=== PATIENT | female | born 1940 | race Caucasian/White ===

== ENCOUNTER 2019-09-24 10:37 | Emergency (ER) | payer MEDICARE, SELFPAY ==
[2019-09-24] VITALS (14 sets, daily range): BP systolic 134–157; BP diastolic 59–78; PULSE 70–96; RESP 13–33; TEMP 36.4–36.5; O2SAT 95–100
--- NOTE | 2019-09-24 10:45 | DI.RAD_ITS ---
EXAM: XR CHEST 2V PA LATERAL INDICATION: pain/sob/cough. COMPARISON: ABD PELVIS WITH CONTRAST from 03/14/2011 CHEST 2 VIEWS PA,LAT from 09/02/2013 TECHNIQUE: 2D digital imaging was performed. FINDINGS: The heart appears mildly enlarged. A hiatal hernia is again noted. There is scoliosis of the upper thoracic spine. There are mild fibrotic changes. No infiltrate, effusion or pulmonary edema is seen . IMPRESSION: Hiatal hernia. No acute abnormality. DATA REPOSITORY: RADIATION DOSE DELIVERED:
[2019-09-24 11:20] LABS: Abs Immature Grans 0.02 k/cumm (0.0-0.09); Absolute Basophil Count 0.02 k/cumm (0.0-0.2); Absolute Lymphocyte Count 1.62 k/cumm (1.2-3.4); Absolute Monocyte Count 0.87 k/cumm (0.11-0.7); Absolute Neutrophil Count 4.78 k/cumm (1.2-6.7); Basophils % 0.3; Eosinophils % 7.6; HCT 39.1 % (36.0-46.0); HGB 12.3 g/dL (12.0-15.5); Immature Grans % 0.3 %; Lymphocytes % 20.5; Mean Corp. HGB Concentration 31.5 g/dL (32.0-36.0); Mean Corpuscular Hemoglobin 26.3 pg (27.0-33.0); Mean Corpuscular Volume 83.7 fL (80-95); Mean Platelet Volume 10.3 fL (8.0-11.0); Neutrophils % 60.3; Platelet Count 249 x1000/uL (130-400); RBC 4.67 m/cumm (4.00-5.20); White Blood Cell Count 7.91 k/cumm (4.4-10.8)
[2019-09-24] MEDS: Albuterol 2.5 MG/3 ML INH SOLN VIAL UPD (11:24)
--- NOTE | 2019-09-24 11:28 | ED.GENADUL_ITS ---
Discharge Plan Disposition Patient Disposition: HOME Condition: Improving Discharge Details Chief Complaint: SOB Clinical Impression: Dyspnea, Chest pain Primary Care Provider: Shira Dykes ED Provider: Devendra Gonsalves Home Meds and New Rx's Prescriptions: New prednisone 20 mg tablet 60 mg PO DAILY 5 Days Qty: 15 RF: 0 No Action mometasone [Nasonex] 17 GM spray,non-aerosol 1 spry Inhalation PRN PRNRF: 0 omeprazole [Prilosec] 20 MG capsule,delayed release(DR/EC) 20 mg PO DAILY RF: 0 Flovent HFA 120 PUFF HFA aerosol inhaler 2 puff Inhalation BID RF: 0 Combivent Respimat 1 PUFF mist 1 puff Inhalation QID RF: 0 Discharge Instructions Instructions: Chest Pain (ED), Dyspnea (ED) Additional Instructions: Prednisone as directed. Continue home medications as directed. Please watch for new or worsening symptoms and return to the ER for any concerns. Otherwise I would like you to contact your primary care provider later today or tomorrow for prompt outpatient reevaluation. Medical Decision Making 79-year-old female with a history of COPD reports left-sided chest wall pressure-pain associated with dyspnea and wheezing over the past 24 hours. Took her inhalers without resolution of her symptoms but after a neb treatment via EMS felt dramatically improved. Upon presentation she appears well, nontoxic and is speaking in full sentences. Her HPI and examination are more consistent with a COPD exacerbatio, pneumoni, pleurisy than they are cardiac in nature. Low suspicion for PE. Will initiate cardiac work-up including d-dimer, give a second neb treatment, IV Solu-Medrol and reassess. No ripping or tearing sensation. Pulses equal throughout. Extremely low suspicion for dissection Upon reevaluation only mild scattered expiratory wheezes remain, mostly clear with cough. Patient is satting 99% on room air. She denies any pain or tightness whatsoever. Initial work-up unremarkable, dimer negative. Patient agreeable to staying in the ER for a 3-hour repeat troponin and EKG. Repeat EKG performed at 1441 reveals sinus rhythm, ventricular rate of 82. No acute ST elevation or depression segments. No changes when compared to initial EKG. Troponin undetectable. Discussed these findings with patient. She is requesting discharge and is comfortable taking oral steroids, 5-day burst dose. She will follow-up with her primary care and was encouraged to return to the ER for any evolving symptoms. As above, extremely low suspicion for ACS, PE, etc. Most likely diagnosis is that of a COPD exacerbation. Patient responded well to treatment here in the ER Medical Records Medical records reviewed: Yes I reviewed the patient's medical records. Imaging Data Radiologic Study: Attestation: I personally reviewed and interpreted this imaging study as follows: Imaging: X-Ray Lab Data Lab results narrative: Chest x-ray negative as read by me ECG Data Attestation: I personally reviewed and interpreted this ECG (s) as follows: Interpretation: EKG performed at 1047. Reveals sinus rhythm, ventricular rate of 70. No acute ST elevation or depression segments HPI General Mode of arrival: EMS . Date/Time Provider Initiated Documentation: 09/24/19 10:43 . Limitations to Documentation: no limitations . Information obtained by: patient . HPI Narrative: 79-year-old female with a history of COPD presents to the ER via EMS for symptoms that began yesterday evening. She reports chest tightness, a sharp pain on her left side of the chest, wheezing, dry cough. She feels like she needs to get something out of her chest but nothing comes up when she coughs. Patient reports using her inhalers at home with little relief but believes that the neb treatment given by EMS helped moderately. She denies recent illness or fever. Denies any anterior chest pain. She denies any pain or swelling in her legs. Patient denies smoking, was never a smoker. Patient denies any radiation of her left- sided lateral chest discomfort into her arm, neck. She does report mild left- sided back pain, thoracic, seems to be positional and worse with movement. Patient denies any history of cardiac disease. Related Data Home Medications Medication Instructions Recorded Confirmed fluticasone propionate [Flovent 2 puff INHALATION BID 09/02/13 09/24/19 220MCG] ipratropium-albuterol [Combivent 1 puff INHALATION QID 09/02/13 09/24/19 Respimat Inhaler] mometasone [Nasonex] 1 spry INHALATION PRN PRN 09/02/13 09/24/19 omeprazole [Prilosec] 20 mg PO DAILY 09/02/13 09/24/19 prednisone 60 mg PO DAILY 5 Days #15 tab 09/24/19 Previous Rx's Medication Instructions Recorded prednisone 60 mg PO DAILY 5 Days #15 tab 09/24/19 Allergies Allergy/AdvReac Type Severity Reaction Status Date / Time Sulfa (Sulfonamide AdvReac Intermediate leg cramps Unverified 09/24/19 10:47 Antibiotics) General Stated Complaint: SOB ASTER: 2 Review of Systems Constitutional Constitutional: Denies chills, Denies fatigue, Denies fever(s) and Denies headache(s) Eyes Eyes: Denies eye discharge ENT Ears, Nose, Mouth, and Throat: Denies otalgia, Denies headache(s) and Denies sore throat Cardiovascular Cardiovascular: Reports chest pain (Left lateral), Denies syncope and Reports dyspnea Respiratory Respiratory: Reports cough and Reports dyspnea Gastrointestinal Gastrointestinal: Denies abdominal pain, Denies nausea and Denies vomiting Musculoskeletal Musculoskeletal: Reports back pain Integumentary/Breasts Skin/Breast: Denies rash Neurologic Neurologic: Denies syncope and Denies headache(s) Endocrine Endocrine: Denies fatigue [facility] Social History Smoking/Tobacco Use Status: Never Alcohol Intake: never Drug use: Never Substance use type: does not use Exam Const General: cooperative, healthy appearing, comfortable and no acute distress Orientation: alert and awake [facility] Head: normal to inspection, normocephalic and atraumatic Mouth: moist mucous membranes Throat: posterior oropharynx normal Eyes Conjunctivae: conjunctivae normal Sclera: sclerae normal Neck Neck: normal visual inspection, full ROM, no lymphadenopathy, trachea midline and supple Chest Chest: tenderness (Mild tenderness and ecchymosis L lateral chest wall just below the breast) Resp Effort & Inspection: normal respiratory effort and able to speak in complete sentences Auscultation: wheezes expiratory wheezes (Bilateral upper) Cardio Rate: regular rate Rhythm: regular rhythm GI Palpation: not soft and nontender Back/Spine/Pelvis Back: No back tenderness Skin General skin exam: no rashes or lesions noted Neuro General: alert, awake, oriented x3, moves all extremities and no focal motor deficits Cranial Nerves: CN's II-XI intact bilaterally Motor: muscle tone normal throughout and strength 5/5 throughout Sensory Exam: no sensory deficits noted Extrem General: normal to inspection Psych Appearance: grossly normal Mental Status: mental status grossly normal Course Vital Signs Vital signs: Vital Signs Temperature 36.4 C 09/24/19 10:40 Pulse 82 09/24/19 10:40 Respiratory Rate 19 09/24/19 10:40 Blood Pressure 152/75 H 09/24/19 10:40 Pulse Oximetry 98 09/24/19 10:40 Temperature 36.4 C 09/24/19 10:40 Temperature Source Skin 09/24/19 10:40 Pulse 82 09/24/19 10:40 Respiratory Rate 18 09/24/19 11:23 Respiratory Effort 09/24/19 11:23 Respiratory Depth Normal 09/24/19 11:23 Respiratory Pattern Normal 09/24/19 11:23 Blood Pressure 152/75 H 09/24/19 10:40 Blood Pressure Position Supine 09/24/19 10:40 Pulse Oximetry 98 09/24/19 10:40 Oxygen Delivery Method Room Air 09/24/19 10:40 Oxygen Flow Rate 0 09/24/19 10:40 Pain Level 5 09/24/19 10:40 Lab/Test Results Lab/Test Results: Laboratory Tests Range/Units 09/24/19 11:10 WBC (4.4-10.8) k/cumm 7.91 RBC (4.00-5.20) m/cumm 4.67 Hgb (12.0-15.5) g/dL 12.3 Hct (36.0-46.0) % 39.1 MCV (80-95) fL 83.7 MCH (27.0-33.0) pg 26.3 L MCHC (32.0-36.0) g/dL 31.5 L RDW (11.7-14.6) % 15.0 H Plt Count (130-400) x1000/uL 249 MPV (8.0-11.0) fL 10.3 Immature Gran % % 0.3 Neutrophils % 60.3 Lymphocytes % 20.5 Monocytes % 11.0 Eosinophils % 7.6 Basophils % 0.3 Absolute Neutrophils (1.2-6.7) k/cumm 4.78 Absolute Lymphocytes (1.2-3.4) k/cumm 1.62 Absolute Monocytes (0.11-0.7) k/cumm 0.87 H Absolute Eosinophils (0.0-0.7) k/cumm 0.60 Absolute Basophils (0.0-0.2) k/cumm 0.02
[2019-09-24 11:39] LABS: PTT Activated 24.5 sec (21.0-31.4); Prothrombin Time 10.1 sec (9.3-11.0)
[2019-09-24 11:45] LABS: ALT 17 U/L (14-59); AST 19 U/L (15-37); Albumin 3.3 g/dL (3.4-5.0); Alkaline Phosphatase 123 U/L (46-116); Anion Gap 5.6 mmol/L (3-11); BUN 17 mg/dL (7-18); Bilirubin, Total 0.3 mg/dL (0.2-1.0); CO2 29.4 mmol/L (21.0-32.0); Calcium 8.5 mg/dL (8.5-10.1); Chloride 105 mmol/L (98-107); Estimated GFR 53.35 (mL/min/1.73m2); Glucose 106 mg/dL (74-106); Magnesium 1.8 mg/dL (1.8-2.4); Potassium 4.4 mmol/L (3.5-5.1); Sodium 140 mmol/L (136-145); Total Protein 6.8 g/dL (6.4-8.2)
[2019-09-24 11:58] LABS: Troponin I < 0.05 ng/Ml (<0.06)
[2019-09-24 12:51] LABS: D-Dimer 372 ng/mlFEU (<500)
[2019-09-24] MEDS: methylPREDNISolone SUCC 125 MG VIAL IVP (13:07)
[2019-09-24 14:17] LABS: Troponin I < 0.05 ng/Ml (<0.06)
== END 2019-09-24 15:19 | disposition home or self-care (01) ==
PROVIDERS: Emergency Provider Physician Assistant
DX: R06.00 Dyspnea, unspecified (principal); R07.81 Pleurodynia; J44.9 Chronic obstructive pulmonary disease, unspecified
CPT/HCPCS: 36415; 80053; 93005; 94640; 96374; 99285; 71046; 83735; 84484; 85025; 85379; 85610; 85730; 93010; 99284; J2930; J7613

== ENCOUNTER 2022-05-01 13:30 | Outpatient (REF) | payer MEDICARE, SELFPAY ==
[2022-05-01 18:56] LABS: MCH 26.9 pg (27.0-33.0); MCHC 31.7 % (32.0-36.0); MCV 85 fL (80-95); MPV 11.4 fL (8.0-11.0); Platelet Count 262 10^3/uL (130-400); RBC 4.83 10^6/uL (3.93-5.22); RDW 14.3 % (11.7-14.6); RDW-SD 44.6 fL; WBC 8.22 10^3/uL (4.4-10.8)
[2022-05-01 19:09] LABS: Anion Gap 5.6 mmol/L (3-11); BUN 13 mg/dL (7-18); CO2 30.4 mmol/L (21.0-32.0); CREATININE 0.9 mg/dL (0.55-1.02); Calcium 8.8 mg/dL (8.5-10.1); Chloride 104 mmol/L (98-107); Estimated GFR 63.43 (mL/min/1.73m2); Glucose 93 mg/dL (74-106); Potassium 4.3 mmol/L (3.5-5.1); Sodium 140 mmol/L (136-145)
== END 2022-05-01 13:31 | disposition home or self-care (01) ==
LOC: NCHCN 13:30
PROVIDERS: Visit Provider Family Medicine
DX: K21.9 Gastro-esophageal reflux disease without esophagitis (principal); K14.3 Hypertrophy of tongue papillae
CPT/HCPCS: 80048; 85027

== ENCOUNTER 2022-11-27 07:08 | Day surgery (SDC) | payer MEDICARE, SELFPAY ==
[2022-11-27 07:43] VITALS: BP 175/91; PULSE 85; RESP 18; TEMP 36.5; O2SAT 97
[2022-11-27] MEDS: Tropicam./Phenyleph. (1/2.5%) 5 ML BTL OD ×3 (07:50→08:03)
--- NOTE | 2022-11-27 07:59 | W.ANESPRE ---
General Info Date of Service Date Performed: 11/27/22 Height: 5 ft 2 in Weight: 64.7 kg Body Mass Index (BMI): 26.1 Surgical Procedure: Operation Date: 11/27/22 09:10 Proposed Procedure Side Surgeon p Cataract Extraction with IOL Implant Right Yonis Rodriguez MD Meds Allergies and Home Medications Allergies Allergy/AdvReac Type Severity Reaction Status Date / Time Sulfa (Sulfonamide AdvReac Intermediate leg cramps Unverified 11/27/22 07:38 Antibiotics) Home Medication Medication Instructions Recorded fluticasone propionate 220 2 puff inhalation BID 09/02/13 mcg/actuation HFA aerosol inhaler (Flovent HFA) ipratropium 20 mcg-albuterol 100 1 puff inhalation QID 09/02/13 mcg/actuation mist for inhalation (Combivent Respimat) mometasone 50 mcg/actuation nasal 1 spry inhalation PRN PRN 09/02/13 spray (Nasonex) omeprazole 20 mg capsule,delayed 20 mg PO DAILY 09/02/13 release (Prilosec) acetaminophen 500 mg tablet 500 mg PO BID 11/24/22 Current Visit Medications: Current Medications Generic Name Dose Route Start Last Admin Trade Name Freq PRN Reason Stop Dose Admin Acetaminophen 1,000 mg 11/27/22 06:00 Acetaminophen 500 Mg Tab PO Q4H PRN PRN Miscellaneous Medication 0 ml 11/27/22 06:00 11/27/22 07:55 Tropicam./Phenyleph. 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 Dyspnea R06.00 Chest pain R07.9 Nuclear age-related cataract, right eye H25.11 Medical History Medical History Acid reflux Asthma Hx of herpes zoster 2019 Nasal congestion Surgical History Surgical History (Updated 05/01/23 @ 07:41 by Emiliana Salas) Hx of colonoscopy Hx of nasal polypectomy Hx of tooth extraction Tobacco Smoking/Tobacco Use Status: Never Alcohol Alcohol Intake: never Substance Use Substance use: Never Substance use type: does not use Vital Signs and Lab Results Vital Signs Most Recent Vital Signs in EMR: Most Recent Vital Signs Temp Pulse Resp BP Pulse Ox 36.5 C 85 18 175/91 H 97 11/27/22 07:43 11/27/22 07:43 11/27/22 07:43 11/27/22 07:43 11/27/22 07:43 Lab Results Blood Type / Crossmatch: No Data to Display Complete Blood Count: No Data to Display Complete Metabolic Panel: No Data to Display Liver Function Panel: No Data to Display Coagulation Panel: No Data to Display Cardiac Panel: No Data to Display Arterial Blood Gas: No Data to Display Venous Blood Gas: No Data to Display Pancreas Panel: No Data to Display Thyroid Panel: No Data to Display Infectious Disease: No Data to Display Blood Cultures: No Data to Display Toxicology Panel: No Data to Display Imaging and Studies Imaging and Studies Study information below may be from another EMR and interpreted by another provider. Please see original notes in EMR for more complete details. Pulmonary Function Summary: IMPRESSION Overall, no evidence of obstructive airways disease, but there appears to be significant bronchodilator response, this may be an effort related phenomenon. It is also noteworthy that both the pre and post bronchodilator spirometry shows flattening of the expiratory flow volume loop putting it into question whether the patient has any thick? intrathoracic obstruction from external compression. There is also concomitant mild restriction. Therefore, clinical correlation recommended. When this study was compared to previous one from 11/20/2005, the patient has a total of 440 cc decline in FVC and 160 cc decline in FEV1 Anesthesia Assessment and Plan Anesthesia History Personal History: No History of Anesthesia Complications Family History: No Family History of Anesthesia Complications Exercise Tolerance Exercise Tolerance: Metabolic Equivalents<4 Pertinent Negatives Pertinent Negatives: No Symptoms of GERD (controlled with meds ) Cardiac & Pulmonary Exam Cardiac Exam: Normal S1/S2 Heart Sounds Pulmonary Exam: Clear Bilateral Breath Sounds Implantable Cardiac Device Does patient have a Pacemaker or an ICD?: No Airway Exam Known Difficult Airway: No Mallampati Class: 3 Mouth Opening: Normal (> 3cm) Thyromental Distance: Greater than 3 cm Neck Range of Motion: Full ROM Neck Circumference: Normal Teeth Condition: Normal Dentition (has only 4 teeth) ASA Classification ASA Score: ASA 2 Emergency Case?: No NPO Status NPO Status: NPO Clears >2 hours, Solids >8 hours Anesthesia Plan Resuscitation Status: Full Code Anesthesia Technique: MAC Anesthesia Airway Planned: Natural Airway Monitors Used: Standard Monitors Preoperative Comments:: Very anxious. BP up beyond normal. Requests MKO
[2022-11-27 08:04] VITALS: BMI 26.1
[2022-11-27] MEDS: Povidone-Iodine Ophth 30 ML BTL (08:53)
[2022-11-27] MEDS: Tetracaine 0.5% 4 ML BTL OD (08:53)
[2022-11-27] MEDS: Duovisc Viscoelastic System EACH 1 EACH (08:59)
[2022-11-27] MEDS: Lidocaine 1% Pres-Free 5 ML VIAL (09:00)
[2022-11-27] MEDS: Phenylephrine/Lidocaine (15/10) MG/ML 1 ML VIAL (09:00)
[2022-11-27 09:21] VITALS: BP 114/85; PULSE 83; RESP 18; TEMP 36.3; O2SAT 95
--- NOTE | 2022-11-27 09:22 | W.PM.DSUDISC ---
Date of service: 11/27/22 Time of Service: 09:22 Discharge Plan Disposition Patient Disposition: Home Discharge Details Attending Provider: Yonis Rodriguez Primary Care Provider: Meño Osorio Home Meds and New Rx's Prescriptions: No Action mometasone [Nasonex] 17 GM spray,non-aerosol 1 spry Inhalation PRN PRN omeprazole [Prilosec] 20 MG capsule,delayed release(DR/EC) 20 mg PO DAILY fluticasone propionate [Flovent HFA] 120 PUFF HFA aerosol inhaler 2 puff Inhalation BID Combivent Respimat 1 PUFF mist 1 puff Inhalation QID acetaminophen 500 mg Tablet 500 mg PO BID Discharge Instructions Stand Alone Forms: Post-op Topical Cataract, Dalton Gracia (DSU) Discharge Orders Discharge Orders: Discharge Order (Routine); Ordered 11/27/22 Ordered By: Yonis Rodriguez DS: Diagnosis Discharge Diagnosis (1) Nuclear age-related cataract, right eye: Status: Resolved
--- NOTE | 2022-11-27 09:23 | W.PM.OP ---
Date of service: 11/27/22 Time of Service: 09: Operative Note Operative Note DATE OF PROCEDURE: 11/27/22 PRE-OP DIAGNOSIS: Nuclear cataract, right eye POST-OP DIAGNOSIS: same PROCEDURE: Cataract extraction using phacoemulsification with intraocular lens implant, right eye SURGEON: Yonis Rodriguez ANESTHESIA TYPE: Local By Surgeon and MAC Refer to Anesthesia Record ESTIMATED BLOOD LOSS: 0 PATHOLOGY: none sent COMPLICATIONS: None Patient was transported to: same day Patient's condition: stable Implants: Stan Clareon [id number] Indications: Progressive decreased vision due to cataract, right eye Procedure Description: CATARACT SURGERY OPERATIVE REPORT PREOPERATIVE DIAGNOSIS: Nuclear cataract, right eye POSTOPERATIVE DIAGNOSIS: Same OPERATION: Cataract extraction using phacoemulsification with posterior chamber intraocular lens implant, right eye. IOL: IOL Farmworker General/Model: Stan Clareon [id number] IOL Power: + 22.5 diopters IOL Serial Number: [id number] Optic Diameter: 6.0mm Haptic/Overall Diameter: 13.0mm PHACO INFO: StanTakeda Cambridgeurion Vision System with OZil and Active Fluidics Cumulative Dispersed Energy (CDE): 19.40 seconds SURGEON: Yonis Rodriguez MD, DARREL ANESTHESIA: Monitored Anesthesia Care (MAC), with local sub-tenon's anesthetic infiltration COMPLICATIONS: None SPECIMENS: None INDICATIONS FOR PROCEDURE: The patient is an 82-year-old lady with history of diminished visual acuity in her right eye secondary to the development of significant nuclear cataract. The option of cataract surgery was offered to the patient and she felt she was symptomatic enough that she wished to proceed. PROCEDURE: The correct surgical eye was identified and marked as the right eye and the pupil was dilated in the preoperative area using mydriatics and cycloplegics. The dilated pupil size was 6.0 mm. Oral sedation was administered in the form of an Imprimis MKO Melt (midazolam 3mg/ketamine 25mg/ondansetron 2mg). The patient was brought to the operating room where cardiopulmonary monitoring was instituted and surgical time-out was performed, confirming the correct operative eye and IOL power. Topical anesthesia was administered and ophthalmic povidone-iodine 5% was instilled into the conjunctival fornices. Lidocaine gel was applied to the cornea and the liana-ocular area was prepped with Betadine 10% solution and draped in the usual sterile fashion for intraocular surgery, including an aperture drape. A Tegaderm transparent film dressing was cut in half and used to cover the lashes and lid margins. Care was taken to sequester the lashes and lid margins under the Tegaderm dressing. A lid speculum was placed between the lids of the operative eye and the Reny-Shirley operating microscope was maneuvered into position. Claribel scissors were then used to make a conjunctival buttonhole approximately 6mm posterior to the limbus in the inferonasal quadrant. Blunt dissection was carried out to expose bare sclera, and a blunt-tipped sub-tenon?s anesthesia cannula was introduced and passed posteriorly along the globe where non-preserved plain lidocaine was injected into posterior sub-Tenon?s space. A sideport knife was used to make a paracentesis port inferiortemporally. Intraocular phenylephrine/lidocaine was injected into the anterior chamber. The anterior chamber was then filled with viscoelastic. A keratome knife was used to construct a two--plane near-clear corneal tunnel extending 2.0mm into clear cornea in the superiortemporal position.. A flap was raised on the anterior capsule and capsulorhexis forceps were used to complete a continuous curvilinear capsulorhexis of 5.0 mm. Balanced salt solution was then used to perform cortical cleaving hydrodissection and nuclear hydrodelineation until the lens could be freely rotated within the capsular bag. The lens nucleus was then disassembled and removed within the capsular bag and iris plane using phacoemulsification. Residual cortical material was removed using the I/A handpiece. The posterior capsule was carefully polished to remove as much residual lens epithelial cells as safely possible. The capsular bag was then inflated and the anterior chamber deepened with viscoelastic. The lens implant described above was inserted into the capsular bag using the Stan Autonome Injector. A Kuglen hook was used to dial the IOL into position. Residual viscoelastic was then removed first from posterior to the IOL, then from the anterior chamber using the I/A handpiece. The lens implant was noted to center nicely within the capsular bag. The incisions were stromally hydrated, and the anterior chamber was reformed using BSS. Then 0.5cc of moxifloxacin 1.0mg/ml were injected into the capsular bag and anterior chamber. The incisions were checked with a Weck spear and found to be secure. Several drops of ophthalmic povidone-iodine 5% were then applied to the eye followed by two drops of Imprimis combination prednisolone/moxifloxacin/nepafenac solution. The drapes were removed and a clear plastic protective eye shield was placed over the eye. The patient was then returned to Same Day Surgery in stable condition.
--- NOTE | 2022-11-27 09:41 | W.ANESPOSTOP ---
Postoperative Evaluation Date, Time and Location Date Performed: 11/27/22 Time Performed: 09:25 Patient Location: Day Surgery Unit Vital Signs Most Recent Imported Vital Signs: Most Recent Vital Signs Temp Pulse Resp BP Pulse Ox 36.3 C L 83 18 114/85 95 11/27/22 09:21 11/27/22 09:21 11/27/22 09:21 11/27/22 09:21 11/27/22 09:21 Pain Score Most Recent Pain Score: Most Recent Pain Score Pain Level 0 11/27/22 09:21 Assessment Mental Status: Awake (Alert & Oriented to Patient Baseline) Airway and Respiratory Function: Patent airway with normal (patient baseline) respiratory exam Cardiovascular Function: Hemodynamically Stable Hydration Status: Adequately Hydrated Nausea & Vomiting: No Nausea or Vomiting Pain: Pt. Denies Any Pain Peripheral Nerve Block: Patient did not receive a nerve block
== END 2022-11-27 09:54 | disposition home or self-care (01) ==
LOC: SUR 07:09
PROVIDERS: PCP Family Medicine; Visit Provider Ophthalmology
PROC: (CPT 66984; principal; 2022-11-27 09:00)
DX: H25.11 Age-related nuclear cataract, right eye (principal); R06.00 Dyspnea, unspecified
CPT/HCPCS: 66984; V2632

== ENCOUNTER 2022-12-11 10:15 | Day surgery (SDC) | payer MEDICARE, SELFPAY ==
[2022-12-11 10:50] VITALS: BP 181/81; PULSE 66; RESP 18; TEMP 36.3; O2SAT 98
[2022-12-11] MEDS: Tropicam./Phenyleph. (1/2.5%) 5 ML BTL OS ×3 (10:59→11:10)
--- NOTE | 2022-12-11 11:05 | ANES.PREOP_ITS ---
General Info Date of Service Date Performed: 12/11/22 Height: 5 ft 2 in Weight: 64.5 kg Body Mass Index (BMI): 25.9 Surgical Procedure: Operation Date: 12/11/22 12:10 Proposed Procedure Side Surgeon p Cataract Extraction with IOL Implant Left Yonis Rodriguez MD Meds Allergies and Home Medications Allergies Allergy/AdvReac Type Severity Reaction Status Date / Time Sulfa (Sulfonamide AdvReac Intermediate leg cramps Unverified 12/11/22 10:48 Antibiotics) Home Medication Medication Instructions Recorded fluticasone propionate 220 2 puff inhalation BID 09/02/13 mcg/actuation HFA aerosol inhaler (Flovent HFA) ipratropium 20 mcg-albuterol 100 1 puff inhalation QID 09/02/13 mcg/actuation mist for inhalation (Combivent Respimat) mometasone 50 mcg/actuation nasal 1 spry inhalation PRN PRN 09/02/13 spray (Nasonex) omeprazole 20 mg capsule,delayed 20 mg PO DAILY 09/02/13 release (Prilosec) acetaminophen 500 mg tablet 500 mg PO BID 11/24/22 Current Visit Medications: Current Medications Generic Name Dose Route Start Last Admin Trade Name Freq PRN Reason Stop Dose Admin Acetaminophen 1,000 mg 12/11/22 06:00 Acetaminophen 500 Mg Tab PO 01/10/23 05:59 Q4H PRN PRN Balanced Salt Solution 500 ml 12/11/22 06:00 Balanced Salt Soln.-Plus 500 Ml Bag OP 01/10/23 05:59 DIRECTED JOSÉ LUIS Miscellaneous Medication 0 ml 12/11/22 06:00 Prednisolone 1%, Moxifloxacin 0.5%, Nepafenac 0.1% 5ml Btl OS 01/10/23 05:59 DIRECTED JOSÉ LUIS Miscellaneous Medication 0 ml 12/11/22 06:00 12/11/22 10:59 Tropicam./Phenyleph. 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 Dyspnea R06.00 Chest pain R07.9 Nuclear age-related cataract, right eye H25.11 Medical History Medical History Acid reflux Asthma Hx of herpes zoster 2019 Nasal congestion Surgical History Surgical History Hx of colonoscopy Hx of nasal polypectomy Hx of tooth extraction Tobacco Smoking/Tobacco Use Status: Never Alcohol Alcohol Intake: never Substance Use Substance use: Never Substance use type: does not use Vital Signs and Lab Results Vital Signs Most Recent Vital Signs in EMR: Most Recent Vital Signs Temp Pulse Resp BP Pulse Ox 36.3 C L 66 18 181/81 H 98 12/11/22 10:50 12/11/22 10:50 12/11/22 10:50 12/11/22 10:50 12/11/22 10:50 Lab Results Blood Type / Crossmatch: No Data to Display Complete Blood Count: No Data to Display Complete Metabolic Panel: No Data to Display Liver Function Panel: No Data to Display Coagulation Panel: No Data to Display Cardiac Panel: No Data to Display Arterial Blood Gas: No Data to Display Venous Blood Gas: No Data to Display Pancreas Panel: No Data to Display Thyroid Panel: 2 No Data to Display Infectious Disease: No Data to Display Blood Cultures: No Data to Display Toxicology Panel: No Data to Display Imaging and Studies Imaging and Studies Study information below may be from another EMR and interpreted by another provider. Please see original notes in EMR for more complete details. Pulmonary Function Summary: IMPRESSION Overall, no evidence of obstructive airways disease, but there appears to be significant bronchodilator response, this may be an effort related phenomenon. It is also noteworthy that both the pre and post bronchodilator spirometry shows flattening of the expiratory flow volume loop putting it into question whether the patient has any thick? intrathoracic obstruction from external compression. There is also concomitant mild restriction. Therefore, clinical correlation recommended. When this study was compared to previous one from 11/20/2005, the patient has a total of 440 cc decline in FVC and 160 cc decline in FEV1 Anesthesia Assessment and Plan Anesthesia History Personal History: No History of Anesthesia Complications Family History: No Family History of Anesthesia Complications Exercise Tolerance Exercise Tolerance: Metabolic Equivalents<4 Cardiac & Pulmonary Exam Cardiac Exam: Normal S1/S2 Heart Sounds Pulmonary Exam: Clear Bilateral Breath Sounds Implantable Cardiac Device Does patient have a Pacemaker or an ICD?: No Airway Exam Known Difficult Airway: No Mallampati Class: 3 Mouth Opening: Normal (> 3cm) Thyromental Distance: Greater than 3 cm Neck Range of Motion: Full ROM Neck Circumference: Normal Teeth Condition: Normal Dentition (has only 4 teeth) ASA Classification ASA Score: ASA 2 Emergency Case?: No NPO Status NPO Status: NPO Clears >2 hours, Solids >8 hours Anesthesia Plan Resuscitation Status: Full Code Anesthesia Technique: MAC Anesthesia Airway Planned: Natural Airway Monitors Used: Standard Monitors
[2022-12-11 11:06] VITALS: BMI 25.9
--- NOTE | 2022-12-11 11:28 | W.PM.OP ---
Date of service: 12/11/22 Time of Service: 11:28 Operative Note Operative Note DATE OF PROCEDURE: 12/11/22 PRE-OP DIAGNOSIS: Nuclear cataract, left eye POST-OP DIAGNOSIS: same PROCEDURE: Cataract extraction using phacoemulsification with intraocular lens implant, left eye SURGEON: Yonis Rodriguez ANESTHESIA TYPE: Local By Surgeon and MAC Refer to Anesthesia Record PATHOLOGY: none sent COMPLICATIONS: None Patient was transported to: same day Patient's condition: stable Implants: Stan Clareon [id number] Indications: Progressive decreased vision due to cataract, left eye Procedure Description: CATARACT SURGERY OPERATIVE REPORT PREOPERATIVE DIAGNOSIS: Nuclear cataract, left eye POSTOPERATIVE DIAGNOSIS: Same OPERATION: Cataract extraction using phacoemulsification with posterior chamber intraocular lens implant, left eye. IOL: IOL Paper Hanger/Model: Stan Clareon CCA0T0 IOL Power: + 22.5 diopters IOL Serial Number: [id number] Optic Diameter: 6.0mm Haptic/Overall Diameter: 13.0mm PHACO INFO: Stan S[employer] Innovationsurion Vision System with OZil and Active Fluidics Cumulative Dispersed Energy (CDE): 8.84 seconds SURGEON: Yonis Rodriguez MD, DARREL ANESTHESIA: Monitored Anesthesia Care (MAC), with local sub-tenon's anesthetic infiltration COMPLICATIONS: None SPECIMENS: None INDICATIONS FOR PROCEDURE: The patient is an 86-year-old gentleman with history of diminished visual acuity in both eyes secondary to the development of bilateral nuclear cataract. He has already undergone cataract surgery in the right eye and is doing well postoperatively. He now presents for cataract surgery in the left eye. See office notes for detailed information. PROCEDURE: The correct surgical eye was identified and marked as the left eye and the pupil was dilated in the preoperative area using mydriatics and cycloplegics. The dilated pupil size was 7.0 mm. The patient elected to proceed without oral sedation. The patient was brought to the operating room where cardiopulmonary monitoring was instituted and surgical time-out was performed, confirming the correct operative eye and IOL power. Topical anesthesia was administered and ophthalmic povidone-iodine 5% was instilled into the conjunctival fornices. Lidocaine gel was applied to the cornea and the liana-ocular area was prepped with Betadine 10% solution and draped in the usual sterile fashion for intraocular surgery, including an aperture drape. A Tegaderm transparent film dressing was cut in half and used to cover the lashes and lid margins. Care was taken to sequester the lashes and lid margins under the Tegaderm dressing. A lid speculum was placed between the lids of the operative eye and the Stan LuxOR Revalia operating microscope was maneuvered into position. Claribel scissors were then used to make a conjunctival buttonhole approximately 6mm posterior to the limbus in the inferonasal quadrant. Blunt dissection was carried out to expose bare sclera, and a blunt-tipped sub-tenon?s anesthesia cannula was introduced and passed posteriorly along the globe where non-preserved plain lidocaine was injected into posterior sub-Tenon?s space. A sideport knife was used to make a paracentesis port. Intraocular phenylephrine/lidocaine was injected into the anterior chamber. The anterior chamber was then filled with viscoelastic. A keratome knife was used construct a two-plane clear corneal tunnel extending 2.0mm into clear cornea. A flap was raised on the anterior capsule and capsulorhexis forceps were used to complete a continuous curvilinear capsulorhexis of 5.0 mm. Balanced salt solution was then used to perform cortical cleaving hydrodissection and nuclear hydrodelineation until the lens could be freely rotated within the capsular bag. The lens nucleus was then disassembled and removed within the capsular bag and iris plane using phacoemulsification. Residual cortical material was removed using the irrigation/aspiration handpiece. The posterior capsule was carefully polished to remove as much residual lens epithelial cells as safely possible. The capsular bag was then inflated and the anterior chamber deepened with viscoelastic. The lens implant described above was inserted into the capsular bag using the Stan Autonome Injector. A Kuglen hook was used to dial the IOL into position. Residual viscoelastic was then removed first from posterior to the IOL, then from the anterior chamber using the I/A handpiece. The lens implant was noted to center nicely within the capsular bag. The incisions were stromally hydrated, and the anterior chamber was reformed using BSS. Then 0.5cc of moxifloxacin 1.0mg/ml were injected into the capsular bag and anterior chamber. The incisions were checked with a Weck spear and found to be secure. Several drops of ophthalmic povidone-iodine 5% were then applied to the eye followed by two drops of Imprimis combination prednisolone/moxifloxacin/nepafenac solution. The drapes were removed and a clear plastic protective eye shield was placed over the eye. The patient was then returned to Same Day Surgery in stable condition.
[2022-12-11] MEDS: Midazolam/Ketamine/Ondansetron (3/25/2MG) 1 TAB 1 EACH SL (11:40)
[2022-12-11] MEDS: Tetracaine 0.5% 4 ML BTL OS (11:42)
[2022-12-11] MEDS: Povidone-Iodine Ophth 30 ML BTL (11:49)
[2022-12-11] MEDS: Balanced Salt Soln.-PLUS 500 ML BAG OP (11:50)
[2022-12-11] MEDS: Duovisc Viscoelastic System EACH 1 EACH (11:50)
[2022-12-11] MEDS: Lidocaine 1% Pres-Free 5 ML VIAL (11:51)
[2022-12-11] MEDS: Phenylephrine/Lidocaine (15/10) MG/ML 1 ML VIAL (11:53)
[2022-12-11 12:10] VITALS: BP 149/99; PULSE 68; RESP 18; TEMP 36.5; O2SAT 99
--- NOTE | 2022-12-11 12:12 | W.PM.DSUDISC ---
Date of service: 12/11/22 Time of Service: 12:12 Discharge Plan Disposition Patient Disposition: Home Discharge Details Attending Provider: Yonis Rodriguez Primary Care Provider: Meño Osorio Home Meds and New Rx's Prescriptions: No Action mometasone [Nasonex] 17 GM spray,non-aerosol 1 spry Inhalation PRN PRN omeprazole [Prilosec] 20 MG capsule,delayed release(DR/EC) 20 mg PO DAILY fluticasone propionate [Flovent HFA] 120 PUFF HFA aerosol inhaler 2 puff Inhalation BID Combivent Respimat 1 PUFF mist 1 puff Inhalation QID acetaminophen 500 mg Tablet 500 mg PO BID Discharge Instructions Stand Alone Forms: Post-op Topical Cataract, Dalton Garcia (DSU) Discharge Orders Discharge Orders: Discharge Order (Routine); Ordered 12/11/22 Ordered By: Yonis Rodriguez DS: Diagnosis Discharge Diagnosis (1) Nuclear age-related cataract, left eye: Status: Resolved
--- NOTE | 2022-12-11 12:13 | W.PM.OP ---
Date of service: 12/11/22 Time of Service: 12:13 Operative Note Operative Note DATE OF PROCEDURE: 12/11/22 PRE-OP DIAGNOSIS: Nuclear cataract, left eye POST-OP DIAGNOSIS: same PROCEDURE: Stan Clareon CCA0T0 SURGEON: Yonis Rodriguez ANESTHESIA TYPE: Local By Surgeon and MAC Refer to Anesthesia Record PATHOLOGY: none sent COMPLICATIONS: None Patient was transported to: same day Patient's condition: stable Implants: Stan Clareon CCA0T0 Indications: Progressive decreased vision due to cataract, left eye Procedure Description: CATARACT SURGERY OPERATIVE REPORT PREOPERATIVE DIAGNOSIS: Nuclear cataract, left eye POSTOPERATIVE DIAGNOSIS: Same OPERATION: Cataract extraction using phacoemulsification with posterior chamber intraocular lens implant, left eye. IOL: IOL Ethanol Quality Leader/Model: Stan Clareon CCA0T0 IOL Power: + 22.0 diopters IOL Serial Number: [id number] Optic Diameter: 6.0mm Haptic/Overall Diameter: 13.0mm PHACO INFO: Stan [employer] Transporturion Vision System with OZil and Active Fluidics Cumulative Dispersed Energy (CDE): 16.24 seconds SURGEON: Yonis Rodriguez MD, DARREL ANESTHESIA: Monitored Anesthesia Care (MAC), with local sub-tenon's anesthetic infiltration COMPLICATIONS: None SPECIMENS: None INDICATIONS FOR PROCEDURE: The patient is an 82-year-old lady with history of diminished visual acuity in both eyes secondary to the development of bilateral nuclear cataract. She has already undergone cataract surgery in the right eye and is doing well postoperatively. She now presents for cataract surgery in the left eye. See office notes for detailed information. PROCEDURE: The correct surgical eye was identified and marked as the left eye and the pupil was dilated in the preoperative area using mydriatics and cycloplegics. The dilated pupil size was 7.0 mm. Oral sedation was administered in the form of an Imprimis MKO Melt (midazolam 3mg/ketamine 25mg/ondansetron 2mg). The patient was brought to the operating room where cardiopulmonary monitoring was instituted and surgical time-out was performed, confirming the correct operative eye and IOL power. Topical anesthesia was administered and ophthalmic povidone-iodine 5% was instilled into the conjunctival fornices. Lidocaine gel was applied to the cornea and the ilana-ocular area was prepped with Betadine 10% solution and draped in the usual sterile fashion for intraocular surgery, including an aperture drape. A Tegaderm transparent film dressing was cut in half and used to cover the lashes and lid margins. Care was taken to sequester the lashes and lid margins under the Tegaderm dressing. A lid speculum was placed between the lids of the operative eye and the Stan LuxOR Revalia operating microscope was maneuvered into position. Claribel scissors were then used to make a conjunctival buttonhole approximately 6mm posterior to the limbus in the inferonasal quadrant. Blunt dissection was carried out to expose bare sclera, and a blunt-tipped sub-tenon?s anesthesia cannula was introduced and passed posteriorly along the globe where non-preserved plain lidocaine was injected into posterior sub-Tenon?s space. A sideport knife was used to make a paracentesis port. Intraocular phenylephrine/lidocaine was injected into the anterior chamber. The anterior chamber was then filled with viscoelastic. A keratome knife was used construct a two-plane clear corneal tunnel extending 2.0mm into clear cornea. A flap was raised on the anterior capsule and capsulorhexis forceps were used to complete a continuous curvilinear capsulorhexis of 5.5 mm. Balanced salt solution was then used to perform cortical cleaving hydrodissection and nuclear hydrodelineation until the lens could be freely rotated within the capsular bag. The lens nucleus was then disassembled and removed within the capsular bag and iris plane using phacoemulsification. Residual cortical material was removed using the irrigation/aspiration handpiece. The posterior capsule was carefully polished to remove as much residual lens epithelial cells as safely possible. The capsular bag was then inflated and the anterior chamber deepened with viscoelastic. The lens implant described above was inserted into the capsular bag using the Stan Autonome Injector. A Kuglen hook was used to dial the IOL into position. Residual viscoelastic was then removed first from posterior to the IOL, then from the anterior chamber using the I/A handpiece. The lens implant was noted to center nicely within the capsular bag. The incisions were stromally hydrated, and the anterior chamber was reformed using BSS. Then 0.5cc of moxifloxacin 1.0mg/ml were injected into the capsular bag and anterior chamber. The incisions were checked with a Weck spear and found to be secure. Several drops of ophthalmic povidone-iodine 5% were then applied to the eye followed by two drops of Imprimis combination prednisolone/moxifloxacin/nepafenac solution. The drapes were removed and a clear plastic protective eye shield was placed over the eye. The patient was then returned to Same Day Surgery in stable condition.
--- NOTE | 2022-12-11 12:16 | W.ANESPOSTOP ---
Postoperative Evaluation Date, Time and Location Date Performed: 12/11/22 Time Performed: 12:16 Patient Location: Day Surgery Unit Vital Signs Most Recent Imported Vital Signs: Most Recent Vital Signs Temp Pulse Resp BP Pulse Ox 36.3 C L 66 18 181/81 H 98 12/11/22 10:50 12/11/22 10:50 12/11/22 10:50 12/11/22 10:50 12/11/22 10:50 Pain Score Most Recent Pain Score: Most Recent Pain Score Pain Level 0 12/11/22 10:50 Assessment Mental Status: Awake (Alert & Oriented to Patient Baseline) Airway and Respiratory Function: Patent airway with normal (patient baseline) respiratory exam Cardiovascular Function: Hemodynamically Stable Hydration Status: Adequately Hydrated Nausea & Vomiting: No Nausea or Vomiting Pain: Pt. Denies Any Pain Peripheral Nerve Block: Patient did not receive a nerve block
[2022-12-11 12:40] VITALS: BP 151/88; PULSE 91; RESP 17; TEMP 36.5; O2SAT 95
== END 2022-12-11 12:45 | disposition home or self-care (01) ==
LOC: SUR 10:16
PROVIDERS: PCP Family Medicine; Visit Provider Ophthalmology
PROC: (CPT 66984; principal; 2022-12-11 12:00)
DX: H25.12 Age-related nuclear cataract, left eye (principal); Z98.41 Cataract extraction status, right eye
CPT/HCPCS: 66984; V2632

== ENCOUNTER 2023-06-04 21:31 | Outpatient (REF) | payer MEDICARE, SELFPAY ==
[2023-06-04 21:41] LABS: HCT 39.6 % (36.0-46.0); HGB 12.1 g/dL (11.2-15.7); MCH 26.2 pg (27.0-33.0); MCHC 30.6 % (32.0-36.0); MCV 86 fL (80-95); MPV 10.6 fL (8.0-11.0); Platelet Count 287 10^3/uL (130-400); RBC 4.61 10^6/uL (3.93-5.22); RDW 14.6 % (11.7-14.6); RDW-SD 45.5 fL; WBC 9.11 10^3/uL (4.4-10.8)
[2023-06-04 21:58] LABS: ALT 21 U/L (14-59); AST 25 U/L (15-37); Albumin 3.7 g/dL (3.4-5.0); Alkaline Phosphatase 131 U/L (46-116); Anion Gap 7.6 mmol/L (3-11); BUN 14 mg/dL (7-18); Bilirubin, Total 0.3 mg/dL (0.2-1.0); CO2 28.4 mmol/L (21.0-32.0); CREATININE 0.9 mg/dL (0.55-1.02); Calcium 9.4 mg/dL (8.5-10.1); Chloride 105 mmol/L (98-107); Estimated GFR 63.04 (mL/min/1.73m2); Glucose 91 mg/dL (74-106); NT-proBNP 78 pg/mL (<300); Potassium 4.1 mmol/L (3.5-5.1); Sodium 141 mmol/L (136-145); Total Protein 7.5 g/dL (6.4-8.2)
== END 2023-06-04 21:32 | disposition home or self-care (01) ==
LOC: NCHCN 21:31
PROVIDERS: PCP Family Medicine; Visit Provider Family Medicine
DX: J45.20 Mild intermittent asthma, uncomplicated (principal); R60.0 Localized edema
CPT/HCPCS: 80053; 85027; 83880

== ENCOUNTER 2024-03-12 11:39 | Outpatient (REF) | payer MEDICARE, SELFPAY ==
--- NOTE | 2024-03-11 13:50 | SKI_PTH ---
PATIENT: Kalani Gramajo LOC: [facility] U#:[id number] AGE/SX: 83/F ROOM: RE03/12/[address]: Meño Osorio : 1940 BED: DIS: 03/12/2024 SPEC #: [id number] RECD: 03/12/24 12:41 STATUS: LUNA REQ #: [id number] ASHIA: 03/11/24 13:[address]: Meño Osorio DEPT: Surgical Specimen RECD BY: Judy Hernandez Tissues: 1 - SKIN CYST/TAG/DEBRIDEMENT Procedures: GROSS AND MICRO LEVEL 4 Comments: [id number]
== END 2024-03-12 11:40 | disposition home or self-care (01) ==
LOC: LBN 11:39
PROVIDERS: PCP Family Medicine; Visit Provider Family Medicine
DX: C44.319 Basal cell carcinoma of skin of other parts of face (principal)
CPT/HCPCS: 88305; 88304

== ENCOUNTER 2024-06-18 11:04 | Outpatient (REF) | payer MEDICARE, SELFPAY ==
--- OUTSIDE RECORDS SUMMARY | 2024-06-18 11:09 | XMS_ITS | Encounter Summary ---
Author Organization [facility] Address [address] [place] [address] Care Team Providers Care Doweler Name Role Phone Unknown, Provider Primary Care Provider Sharon cramer Encounter Details Date Type Department Care Team (Late st Contact Info) Description 03/12/2024 Lab Requisition [facility] Pathology & Laboratory Medicine - [facility] [address] [place] [address] Meño Osorio MD [address] [place] [address] [phone] Encounter for other general examination Social History Tobacco Use Types Packs/Day Years Used Date Smoking Tobacco: Never Assessed Comments Unknown Sex and Gender Information Value Date Recorded Sex Assigned at Not on file Legal Sex Female 18:27 EST Gender Identity Not on file Sexual Orientation Not on file documented as of this encounter Plan of Treatment Not on file documented as of this encounter Procedures Procedure Name Priority Date/Time Associated Diagnosis Comments SURGICAL PATHOLOGY Today 03/11/2024 13 :50 EDT Encounter for other general examination documented in this encounter Results * SURGICAL PATHOLOGY (03/11/2024 13:50 EDT) Note to Patient The following pathology results have been interpreted by your pathologist and may be available to you before your health provider has had the opportunity to review them. Please allow time for your provider to receive these results and explore management options, if applicable. 03/14/2024 14:06 EDT [facility] Final Diagnosis A. SKIN OF CHEEK, LEFT, EXCISION: - Basal cell carcinoma, nodular type, with infiltrative features, involving peripheral margins. See comment 03/14/2024 14:06 [facility] Diagnosis Comment A nodular basal cell carcinoma is seen involving both peripheral margins of the central sections. The tip sections are negative. 03/14/2024 14:06 [facility] Attestation By the signature below, the attending physician certifies that they have 1) personally conducted a gross and/or microscopic examination of the described specimen(s), and/or personally interpreted the results of laboratory testing of the described specimen(s), and 2) personally rendered or confirmed the above diagnosis. 03/14/2024 14:06 [facility] at 1406 Clinical History ? SCC 03/14/2024 14:06 [facility] Gross Description A. Received in formalin labelled with proper patient identification (initials M, S) and left cheek cyst is an unoriented elliptical excision of sandoval skin (2.3 x 0.9 cm and is excised to a depth of 0.2 cm). There is a central irregular sandoval-brown crusted lesion that measures 0.7 x 0.5 x 0.2 cm. The margins are inked blue. The specimen is serially sectioned and entirely submitted as A1-A3 7 central sections and A4 2 tips, reverse en face. Isabel Thornton 03/13/2024 8:48 03/14/2024 14:06 [facility] Performing Lab [facility] 03/14/2024 14:06 [facility] Scanned Images 03/14/2024 14:06 [facility] Tissue SPECIMEN FROM SKIN / Unknown 03/11/2024 13:50 EDT 03/12/2024 17:54 EDT us Meño Osorio MD PATHOLOGY ORDERABLES Final Resul t [facility] [address], [place] [id number] documented in this encounter Visit Diagnoses Diagnosis Encounter for other general examination documented in this encounter Care Teams Doweler Relationship Specialty Start Date End Date Unknown, Provider, PCP - General 06/07/15 documented as of this encounter
--- OUTSIDE RECORDS SUMMARY | 2024-06-18 11:09 | XMS_ITS | Encounter Summary ---
Author Organization [facility] Address [address] [place] [address] Care Team Providers Care Ambulatory Services Representative Name Role Phone Unavailable Primary Care Provider Unavailabl e Encounter Details Date Type Department Care Team (Late st Contact Info) Description 07/24/2001 Results Only [facility] - Maple conversion [address] [place] [address] Kevin Murcia, DO [address] [facility] [address], [place] [phone] Social History Tobacco Use Types Packs/Day Years [...] Priority Date/Time Associated Diagnosis Comments SURGICAL PATHOLOGY Routine 07/24/2001 0:00 EST documented in this encounter Results * SURGICAL PATHOLOGY (07/24/2001 0:00 EST) Pathology Report: SURGICAL PATHOLOGY REPORT Reports generated via electronic interface contain original data; however they are lacking the format of the original report. Caution should be taken when reading/interpreti ng unformatted reports. Name: ? KALANI MCGREGOR ? Accession #: ? [id number] ? : ? 1940 (Age: 61) ??F ? Collect Date: ? 07/24/2001 ? Location: ? [facility] ? Receive Date: ? 07/24/2001 ? Provider: KEVIN MURCIA DO Copy to: JOHN CLIFTON MD ? Final Pathologic Diagnosis: A. ?Stomach, antrum, biopsies: 1. ?Chronic gastritis with focal intestinal metaplasia. 2. ?Dakota stain negative for H pylori like organisms. B. ?Stomach, polyp of body, polypectomy: 1. ?Fundic gland polyp. C. ?Esophagus, distal, biopsies: 1. ?Acute esophagitis with granulation tissue and exudate. 2. ?PAS stain negative for fungal micro-organisms. Document reviewed and electronically signed by: JOHN PLASENCIA MD Report ??Date: 07/29/2001 13:09 By the signature above, the attending physician certifies that he/she has personally conducted a gross and/or microscopic examination of the described specimens and rendered or confirmed the above diagnosis. Specimen(s) Received: A. ?Bx antrum (#1) B. ?Polyp body of stomach (#2) C. ?Bx distal esophagus (#3) Clinical History: ? Epigastric pain; family hx colon ca; GERD Gross Description: ? Received in Hollande' s fixative labelled Mcgregor and 1. Bx antrum are two, irregular, small fragments of soft tissue measuring 0.2 x 0.2 x 0.1 cm and 0.3 x 0.3 x 0.2 cm. ??The specimen is submitted intact as (A). Received in Hollande' s fixative labelled Mcgregor and polyp of body of stomach is an irregular fragment of soft tissue measuring 0.4 x 0.3 x 0.2 cm. The specimen is submitted intact as (B). Received in Hollande' s fixative labelled Mcgregor and distal esophagus are two, irregular fragments of soft tissue measuring 0.1 x 0.1 x 0.1 cm and 0.2 x 0.1 x 0.1 cm. ??The specimen is submitted intact as (C). ??(Dr. Orr)/dtl End of Report MERNA THAKUR 07/24/2001 07/24/2001 15: 04 EST us Kevin Murcia DO PATHOLOGY ORDERABLES Fi nal Result Performing Organization Address City/State/[facility] Co de Phone Number MERNA THAKUR [address] [place] [address] documented in this encounter Visit Diagnoses Not on filedocumented in this encounter
--- OUTSIDE RECORDS SUMMARY | 2024-06-18 11:09 | XMS_ITS | Encounter Summary ---
Author Organization [facility] Address [address] [place] [address] Care Team Providers Care Still Tender Name Role Phone Unavailable Primary Care Provider Unavailabl e Encounter Details Date Type Department Care Team (Late st Contact Info) Description 01/22/2001 Results Only [facility] [address] [place] [address] Heather Kent FNP [address] [place], [place] [id number] Social History Tobacco Use Types Packs/Day Years [...] Procedure Name Priority Date/Time Associated Diagnosis Comments CYTOPATHOLOGY Routine 01/22/2001 0:00 EDT documented in this encounter Results * CYTOPATHOLOGY (01/22/2001 0:00 EDT) Pathology Report: CYTOPATHOLOGY REPORT Reports generated via electronic interface contain original data; however they are lacking the format of the original report. Caution should be taken when reading/interpreti ng unformatted reports. Name: ? KALANI MCGREGOR ? Accession #: ? [id number] : ? 1940 (Age: 60) ??F ?Collect Date: ? 01/22/2001 Location: ? [facility] ? Receive Date: ? 01/28/2001 Provider: ?HEATHER LOPEZP Copy to: ? Specimen/Source: ?Conventional Pap Test, Cervix/Endocervix Last Menstrual Period: ? XENA ? SPECIMEN ADEQUACY ? Satisfactory for evaluation. GENERAL CATEGORIZATION ? Within Normal Limits ? Document reviewed and electronically signed by: ? MINA Del Rio(ASCP) ? Report Date: ??01/29/2001 13:56 End of Report MERNA THAKUR 01/22/2001 01/28/2001 us Heather Kent ACCOUNT CLASSIFICATION CLERK PATHOLOGY ORDERABLES Final Resul t MERNA THAKUR [address] [place] [address] documented in this encounter Visit Diagnoses Not on filedocumented in this encounter
--- OUTSIDE RECORDS SUMMARY | 2024-06-18 11:09 | XMS_ITS | Encounter Summary ---
Author Organization [facility] Address [address] [place] [address] Care Team Providers Care Chicken Hatchery Helper Name Role Phone Unavailable Primary Care Provider Unavailabl e Encounter Details Date Type Department Care Team (Late st Contact Info) Description 09/14/2003 Results Only [facility] [address] [place] [address] Cyndi Guillen, TECHNICIAN PREVENTATIVE MEDICINE [address] [place], [place] [id number] Social History Tobacco Use Types Packs/Day Years [...] Priority Date/Time Associated Diagnosis Comments CYTOPATHOLOGY Routine 09/14/2003 0:00 EST documented in this encounter Results * CYTOPATHOLOGY (09/14/2003 0:00 EST) Pathology Report: CYTOPATHOLOGY REPORT Reports generated via electronic interface contain original data; however they are lacking the format of the original report. Caution should be taken when reading/interpreti ng unformatted reports. Name: ? KALANI MCGREGOR ? Accession #: ? [id number] : ? 1940 (Age: 63) ??F ?Collect Date: ? 09/14/2003 Location: ? [facility] ? Receive Date: ? 09/16/2003 Provider: ?CYNDI GUILLEN TECHNICIAN PREVENTATIVE MEDICINE Copy to: ? Specimen/Source: ?ThinPrep Pap Test, Cervix/Endocervix Last Menstrual Period: ? 21 yrs ago Other: ? HPVA - HPV testing requested if ASC-US on the current ThinPrep Pap test. ? SPECIMEN ADEQUACY ? Satisfactory for Evaluation - assessment of transformation zone component not applicable ( e.g. atrophy, vaginal sample, hysterectomy) - scant squamous epithelial component GENERAL CATEGORIZATION ? Negative for Intraepithelial Lesion or Malignancy ? Document reviewed and electronically signed by: ? Sveta Isaac, SCT(ASCP) ? Report Date: ??09/18/2003 08:29 End of Report MERNA THAKUR 09/14/2003 09/16/2003 us Cyndi Guillen NP PATHOLOGY ORDERABLES Final Resu lt MERNA THAKUR [address] [place] [address] documented in this encounter Visit Diagnoses Not on filedocumented in this encounter
--- OUTSIDE RECORDS SUMMARY | 2024-06-18 11:09 | XMS_ITS | Clinical Summary ---
Author Organization [facility] Address [address] [place] [address] Care Team Providers Care Applier Name Role Phone Unknown, Provider Primary Care Provider Unava ilable Social History Tobacco Use Types Packs/Day Years Used Date Smoking Tobacco: Never Assessed Comments Unknown Sex and Gender Information Value Date Recorded Sex Assigned at Not on file Legal Sex Female 18:27 EST Gender Identity Not on file Sexual Orientation Not on file Plan of Treatment Health Maintenance Due Date Last Done Comments Fall Risk Screening 2004 RSV Immunization ( o r 60+ Years) (1 - 1-dose 75+ series) 2014 COVID-19 Vaccine ( season) 2024 Insurance MEDICARE GENERIC COMMERCIAL Care Teams Applier Relationship Specialty Start Date End Date Unknown, Provider, PCP - General 06/07/15
--- OUTSIDE RECORDS SUMMARY | 2024-06-18 11:09 | XMS_ITS | Referral Summary ---
Author Organization [facility] Address [address] [place] [address] Care Team Providers Care College Counselor Name Role Phone Unknown, Provider Primary Care Provider Unava ilable Social History Tobacco Use Types Packs/Day Years Used Date Smoking Tobacco: Never Assessed Comments Unknown Sex and Gender Information Value Date Recorded Sex Assigned at Not on file Legal Sex Female 18:27 EST Gender Identity Not on file Sexual Orientation Not on file Plan of Treatment Not on file Insurance MEDICARE GENERIC [employer]ERCIAL Care Teams College Counselor Relationship Specialty Start Date End Date Unknown, Provider, PCP - General 06/07/15
[2024-06-18 14:55] LABS: Abs Immature Grans 0.01 10^3/uL (0.0-0.06); Absolute Basophil Count 0.02 10^3/uL (0.0-0.2); Absolute Eosinophil Count 0.38 10^3/uL (0.0-0.7); Absolute Monocyte Count 0.93 10^3/uL (0.1-0.8); Absolute Neutrophil Count 2.53 10^3/uL (1.2-6.7); Basophils % 0.4 %; Eosinophils % 7.5 %; HCT 40.3 % (36.0-46.0); Immature Grans % 0.2 %; Lymphocytes % 23.7 %; MCH 25.7 pg (27.0-33.0); MCHC 29.8 % (32.0-36.0); MCV 86 fL (80-95); MPV 10.8 fL (8.0-11.0); Monocytes % 18.3 %; Neutrophils % 49.9 %; Platelet Count 215 10^3/uL (130-400); RBC 4.67 10^6/uL (3.93-5.22); RDW 15.2 % (11.7-14.6); RDW-SD 48.1 fL; WBC 5.07 10^3/uL (4.4-10.8)
[2024-06-18 15:02] LABS: Anion Gap 6.4 mmol/L (3-11); BUN 12 mg/dL (7-18); CO2 29.6 mmol/L (21.0-32.0); Calcium 8.3 mg/dL (8.5-10.1); Chloride 107 mmol/L (98-107); Estimated GFR 55.21 (mL/min/1.73m2); Glucose 93 mg/dL (74-106); Potassium 3.9 mmol/L (3.5-5.1); Sodium 143 mmol/L (136-145)
== END 2024-06-18 11:05 | disposition home or self-care (01) ==
LOC: NCHCN 11:04
PROVIDERS: PCP Family Medicine; Visit Provider Family Medicine
DX: U07.1 COVID-19 (principal)
CPT/HCPCS: 80048; 85025

== ENCOUNTER 2025-02-02 13:40 | Emergency (ER) | payer OTHER, SELFPAY ==
[2025-02-02 13:39] VITALS: BP 164/104; PULSE 117; RESP 18; TEMP 37.4; O2SAT 96
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
[2025-02-02 14:05] LABS: Abs Immature Grans 0.12 10^3/uL (0.0-0.06); HCT 36.1 % (36.0-46.0); HGB 11.3 g/dL (11.2-15.7); Immature Grans % 1.0 %; MCH 26.1 pg (27.0-33.0); MCHC 31.3 % (32.0-36.0); MCV 83 fL (80-95); MPV 10.2 fL (8.0-11.0); Platelet Count 298 10^3/uL (130-400); RBC 4.33 10^6/uL (3.93-5.22); RDW 14.6 % (11.7-14.6); RDW-SD 44.4 fL; WBC 12.09 10^3/uL (4.4-10.8)
[2025-02-02 14:32] LABS: ALT 23 U/L (14-59); AST 24 U/L (15-37); Albumin 3.7 g/dL (3.4-5.0); Alkaline Phosphatase 130 U/L (46-116); Anion Gap 11.9 mmol/L (3-11); BUN 14 mg/dL (7-18); Bilirubin, Total 0.4 mg/dL (0.2-1.0); CO2 26.1 mmol/L (21.0-32.0); Calcium 8.9 mg/dL (8.5-10.1); Chloride 105 mmol/L (98-107); Estimated GFR 62.65 (mL/min/1.73m2); Glucose 140 mg/dL (74-106); Potassium 3.8 mmol/L (3.5-5.1); Sodium 143 mmol/L (136-145); Total Protein 7.4 g/dL (6.4-8.2); Troponin I 5 ng/L (<or=51)
[2025-02-02] MEDS: Omnipaque 350 MG/ML 100 ML BTL 70 ML IJ (14:32)
[2025-02-02] MEDS: Normal Saline - Diluent 50 ML VIAL IJ (14:33)
[2025-02-02 15:55] VITALS: BP 164/97; PULSE 110; RESP 18; TEMP 37.4; O2SAT 96
== END 2025-02-02 15:56 | disposition home or self-care (01) ==
PROVIDERS: Emergency Provider Emergency Medicine; PCP Family Medicine
DX: S20.214A Contusion of middle front wall of thorax, initial encounter (principal); E04.2 Nontoxic multinodular goiter; R00.0 Tachycardia, unspecified; J45.909 Unspecified asthma, uncomplicated
CPT/HCPCS: 36415; 80053; 93005; 99285; 70450; 71260; 72125; 84484; 85025; 93010; 99284; J3490

== ENCOUNTER 2025-02-07 11:55 | Outpatient (CLI) | payer MEDICARE, SELFPAY ==
--- NOTE | 2025-02-07 12:45 | DI.RAD_ITS ---
Exam(s) XR CHEST 2V PA LATERAL EXAM: XR CHEST 2V PA LATERAL CLINICAL HISTORY: cough TECHNIQUE: 2D digital imaging was performed. Two views. COMPARISON: CT CT CHEST W from 02/02/2025 FINDINGS: Exam is limited by poor pulmonary inflation. HEART: Enlarged. Aorta: Not dilated. PULMONARY VASCULATURE: Normal. MEDIASTINUM: There is a large hiatal hernia. LUNGS: Clear. PLEURAL SPACE: No pleural effusion or pneumothorax. BONE:Unremarkable for age. SOFT TISSUES: Unremarkable. IMPRESSION: No acute abnormality. The preliminary [facility] report was reviewed. DATA REPOSITORY: RADIATION DOSE DELIVERED:
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
== END 2025-02-07 12:15 ==
PROVIDERS: PCP Family Medicine; Visit Provider Physician Assistant
DX: R05.9 Cough, unspecified (principal)
CPT/HCPCS: 71046